=== PATIENT | male | born 1990 | race Caucasian/White ===

== ENCOUNTER 2016-09-03 16:21 | Emergency (ER) | payer BC ==
[2016-09-03 16:32] VITALS: BP 133/75
[2016-09-03] MEDS ORDERED: Gentamicin 0.3% Ophth Soln 5 ML Bottle EYERT ONE (17:08)
[2016-09-03] MEDS ORDERED: Gentamicin 0.3% Ophth Soln 5 ML Bottle ONE (17:08)
--- NOTE | 2016-09-03 17:09 | EDM.PDOC ---
ED HPI EYE COMPLAINT - General Chief Complaint: Eye Problems Stated Complaint: RIGHT EYE PROBLEM,POSSIBLE PINK EYE Time Seen by Provider: 09/03/16 17:03 Source: Reports: Patient History Limitations: Reports: No limitations - History of Present Illness INITIAL COMMENTS - FREE TEXT/NARRATIVE: 26 yo white male c/o right eye matting X 2 days. Symptom Onset Date: 09/01/16 Symptom Onset Time: 12:00 Timing/Duration: Reports: Day(s): Location: right eye Severity: mild Associated Symptoms (Eye): Reports: eyelid matting - Related Data Allergies/ADRs: Allergies No Known Allergies Allergy (Verified 09/03/16 16:35) Home Meds: Ambulatory Orders Medication Instructions Recorded Confirmed . [No Known Home Meds] 06/08/13 09/03/16 Past Medical History - Past Health History Medical/Surgical History: Denies Medical/Surgical History HEENT History: Reports: Impaired vision, Other (see below) Other HEENT History: pt wears contacts Cardiovascular History: Reports: None Respiratory History: Reports: None Gastrointestinal History: Reports: None Genitourinary History: Reports: None Musculoskeletal History: Reports: None Neurological History: Reports: None Psychiatric History: Reports: None Endocrine/Metabolic History: Reports: None Hematologic History: Reports: None Immunologic History: Reports: None Oncologic (Cancer) History: Reports: None Dermatologic History: Reports: None - Infectious Disease History Infectious Disease History: Reports: None - Past Surgical History Head Surgeries/Procedures: Reports: None Social & Family History - Family History Family Medical History: Noncontributory - Tobacco Use Smoking Status *Q: Never Smoker Second Hand Smoke Exposure: No - Caffeine Use Caffeine Use: Reports: Coffee, Soda - Recreational Drug Use Recreational Drug Use: No ED ROS GENERAL - Review of Systems Review Of Systems: See Below Constitutional: Reports: no symptoms HEENT: Reports: Eye discharge (with eyelid matting) Respiratory: Reports: No Symptoms Cardiovascular: Reports: No symptoms ED EXAM GENERAL W FULL EYE - Physical Exam Exam: See Below Exam Limited By: No limitations General Appearance: alert, no apparent distress Eye Exam: bilateral eye: normal inspection, PERRL Eyelids: bilateral: normal appearance Conjunctiva & Sclera: right: injected Cornea Exam: bilateral: normal appearance Extraocular Movements: bilateral: intact Pupils: normal accommodation Pupillary Reaction: bilateral: brisk Anterior Chamber: bilateral: normal appearance Posterior Chamber: bilateral: normal funduscopic Ears: normal external exam Nose: normal inspection Throat/Mouth: Normal inspection Head: atraumatic Neck: normal inspection Course - Vital Signs Last Recorded V/S: Last Vital Signs Temp 36.6 C 09/03/16 16:30 Pulse 71 09/03/16 16:30 Resp 16 09/03/16 16:30 BP 133/75 09/03/16 16:30 Pulse Ox 98 09/03/16 16:30 Departure - Departure Time of Disposition: 17:08 Disposition: Home, Self-Care 01 Condition: good Clinical Impression: Conjunctivitis Qualifiers: Conjunctivitis type: acute Acute conjunctivitis type: unspecified Laterality: right Qualified Code(s): H10.31 - Unspecified acute conjunctivitis, right eye Instructions: Bacterial Conjunctivitis, [id number] Forms: ED Department Discharge Additional Instructions: Keep eye clean Use Eye drops as prescribed only - Garamycin Opthal Soln 3 drops to each eye QID F/U w/ PCP
== END 2016-09-03 17:15 | disposition home or self-care (01) ==
LOC: DL.ED 16:21
DX: H10.31 Unspecified acute conjunctivitis, right eye (principal)
CPT/HCPCS: 99282; A9270-GY